=== PATIENT | female | born 1965 | race Two or more races ===

== ENCOUNTER 2021-03-07 01:02 | Emergency (ER) | payer MEDICAID ==
[~2021-03-07] VITALS: Ht 152.4 cm; Wt 52.2 kg
[2021-03-07 01:15] VITALS: BP 118/73
== END 2021-03-07 03:46 | disposition home or self-care (01) ==
LOC: ER 01:02
DX: S93.401A Sprain of unspecified ligament of right ankle, initial encounter (principal); M19.172 Post-traumatic osteoarthritis, left ankle and foot; W01.0XXA Fall on same level from slipping, tripping and stumbling without subsequent striking against object, initial encounter; Y93.89 Activity, other specified; Y92.89 Other specified places as the place of occurrence of the external cause; Y99.8 Other external cause status
CPT/HCPCS: 29515; 73610

== ENCOUNTER 2021-04-02 07:32 | Emergency (ER) | payer MEDICAID ==
[~2021-04-02] VITALS: Ht 154.9 cm; Wt 61.2 kg
[2021-04-02 08:20] VITALS: BP 127/91
== END 2021-04-02 08:46 | disposition home or self-care (01) ==
LOC: ER 07:32
DX: S93.602A Unspecified sprain of left foot, initial encounter (principal); M19.072 Primary osteoarthritis, left ankle and foot; X58.XXXA Exposure to other specified factors, initial encounter; Y93.89 Activity, other specified; Y92.89 Other specified places as the place of occurrence of the external cause; Y99.8 Other external cause status

== ENCOUNTER 2021-04-07 20:21 | Emergency (ER) | payer MEDICAID ==
[~2021-04-07] VITALS: Ht 154.9 cm; Wt 54.4 kg
[2021-04-07 20:22] VITALS: BP 162/86
[2021-04-07] MEDS ORDERED: PANTOPRAZOLE 40 MG/10 ML VIAL INJ IV STA (20:39)
[2021-04-07] MEDS ORDERED: ONDANSETRON HCL 4 MG/2 ML VIAL IV ONE (20:45)
[2021-04-07] MEDS ORDERED: MORPHINE SULFATE 4 MG/ML SYR/VIAL IV ONE (20:45)
[2021-04-07] MEDS ORDERED: LORazepam 2MG/ML-1ML VIAL IV ONE (20:45)
[2021-04-07] MEDS ORDERED: SODIUM CHLORIDE 0.9% 1,000 ML IVB ONE (20:45)
[2021-04-07 21:15] LABS: Basophils # (auto) 0 10 ^3/uL (0-0.2); Basophils % (auto) 0.5 % (0.0-2.0); Eosinophils # (auto) 0 10 ^3/uL (0-0.8); Eosinophils % (auto) 0.4 % (0.0-7.0); Hematocrit 39.5 % (36.0-46.0); Hemoglobin 13.3 g/dL (12.2-16.2); Lymphocytes # (auto) 2.3 10 ^3/uL (0.4-5.4); Lymphocytes % (auto) 26.3 % (10.0-50.0); Mean Corpuscular Hemoglobin 29.5 pg (28.0-32.0); Mean Corpuscular Hgb Conc. 33.6 g/dL (32.0-36.0); Mean Corpuscular Volume 87.8 fL (80.0-100.0); Monocytes # (auto) 0.6 10 ^3/uL (0-1.3); Monocytes % (auto) 7.2 % (0.0-12.0); Neutrophils # (auto) 5.7 10 ^3/uL (1.6-8.6); Neutrophils % (auto) 65.6 % (37.0-80.0); Nucleated Red Blood Cells % 0.1 %; Platelet Count (auto) 353 10^3/uL (140-450); Red Cell Distribution Width 13.6 % (11.8-14.3); White Blood Cell 8.6 10^3/uL (4.4-10.8)
[2021-04-07 21:30] LABS: Albumin 4.3 g/dL (3.4-5.0); BUN/Creatinine Ratio 17.6; Calcium 9.3 mg/dL (8.5-10.1); Potassium 3.3 mmol/L (3.5-5.1)
[2021-04-07 21:33] LABS: Urine Bacteria FEW /hpf (None Seen); Urine Blood TRACE /uL (Negative); Urine Specific Gravity 1.004 (1.001-1.035); Urine WBC 4 /hpf (0 - 5)
[2021-04-07 21:33] LABS: Bilirubin, Total 0.2 mg/dL (0.2-1.0); Total Protein 7.6 g/dL (6.4-8.2)
== END 2021-04-07 22:54 | disposition home or self-care (01) ==
LOC: ER 20:24
DX: R10.9 Unspecified abdominal pain (principal); Z90.49 Acquired absence of other specified parts of digestive tract
CPT/HCPCS: 36415; 74176; 80053; 81001; 83690; 85025; 96361; 96374; 96375; 99284; C9113; J2270; J2405

== ENCOUNTER 2021-04-14 08:18 | Emergency (ER) | payer MEDICAID ==
[~2021-04-14] VITALS: Ht 154.9 cm; Wt 61.2 kg
[2021-04-14 09:00] VITALS: BP 129/81
== END 2021-04-14 10:26 | disposition home or self-care (01) ==
LOC: ER 08:18
DX: M13.872 Other specified arthritis, left ankle and foot (principal); Z90.49 Acquired absence of other specified parts of digestive tract
CPT/HCPCS: 73630

== ENCOUNTER 2021-07-25 19:21 | Emergency (ER) | payer MEDICAID ==
[~2021-07-25] VITALS: Ht 154.9 cm; Wt 61.2 kg
[2021-07-25 20:26] LABS: Basophils # (auto) 0.1 10 ^3/uL (0-0.2); Basophils % (auto) 0.7 % (0.0-2.0); Eosinophils # (auto) 0 10 ^3/uL (0-0.8); Eosinophils % (auto) 0.4 % (0.0-7.0); Hematocrit 40.6 % (36.0-46.0); Hemoglobin 13.5 g/dL (12.2-16.2); Lymphocytes # (auto) 2.8 10 ^3/uL (0.4-5.4); Mean Corpuscular Hemoglobin 29.7 pg (28.0-32.0); Mean Corpuscular Hgb Conc. 33.3 g/dL (32.0-36.0); Monocytes # (auto) 0.7 10 ^3/uL (0-1.3); Monocytes % (auto) 7.4 % (0.0-12.0); Neutrophils # (auto) 5.4 10 ^3/uL (1.6-8.6); Neutrophils % (auto) 60.5 % (37.0-80.0); Nucleated Red Blood Cells % 0.1 %; Red Blood Cells 4.56 10^6/uL (4.0-5.20); Red Cell Distribution Width 12.9 % (11.8-14.3)
[2021-07-25] MEDS ORDERED: SODIUM CHLORIDE 0.9% 1,000 ML IVB ONE (20:30)
[2021-07-25] MEDS ORDERED: ONDANSETRON HCL 4 MG/2 ML VIAL IV ONE (20:30)
[2021-07-25] MEDS ORDERED: MORPHINE SULFATE INJECTION 2 MG/ML SYRG IV ONE (20:30)
[2021-07-25 20:33] LABS: BUN/Creatinine Ratio 18.4; Calcium 9.8 mg/dL (8.5-10.1); Potassium 3.4 mmol/L (3.5-5.1)
[2021-07-25 20:39] LABS: Bilirubin, Total 0.3 mg/dL (0.2-1.0); Total Protein 7.6 g/dL (6.4-8.2)
[2021-07-25 20:40] LABS: Magnesium 2.3 mg/dL (1.6-2.6)
[2021-07-25 23:05] VITALS: BP 138/75
[2021-07-25] MEDS ORDERED: MORPHINE SULFATE 4 MG/ML SYR/VIAL IV ONE (23:15)
== END 2021-07-26 01:04 | disposition home or self-care (01) ==
LOC: ER 19:21
DX: K59.00 Constipation, unspecified (principal); R10.84 Generalized abdominal pain; R11.0 Nausea; F31.9 Bipolar disorder, unspecified; Z90.49 Acquired absence of other specified parts of digestive tract
CPT/HCPCS: 36415; 71045; 74176; 80053; 82150; 83690; 83735; 84484; 85025; 93005; 96361; 96374; 96375; 96376; 99285; J2270; J2405; J7030

== ENCOUNTER 2021-07-26 15:52 | Emergency (ER) | payer MEDICAID ==
[~2021-07-26] VITALS: Ht 152.4 cm; Wt 52.2 kg
[2021-07-26 15:55] VITALS: BP 122/66
== END 2021-07-26 20:49 | disposition left against medical advice (07) ==
LOC: ER 15:52
DX: R10.9 Unspecified abdominal pain (principal); Z53.21 Procedure and treatment not carried out due to patient leaving prior to being seen by health care provider

== ENCOUNTER 2021-07-28 16:43 | Emergency (ER) | payer MEDICAID ==
[~2021-07-28] VITALS: Ht 152.4 cm; Wt 59.0 kg
[2021-07-28 17:09] VITALS: BP 124/80
== END 2021-07-28 18:53 | disposition home or self-care (01) ==
LOC: ER 16:43
DX: K59.00 Constipation, unspecified (principal); F32.9 Major depressive disorder, single episode, unspecified; Z90.49 Acquired absence of other specified parts of digestive tract